=== PATIENT | female | born 2000 | race Caucasian/White ===

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

== ENCOUNTER → 2024-07-27 | Outpatient (CLI) | payer BC ==
--- NOTE | 2024-07-27 15:05 | USB ---
Reason for Exam: Clinical finding. Technique: Method: Targeted. Findings: The area of palpable concern of the left breast, the axilla of the left breast and the retroareolar of the left breast were scanned. There is a solid mass at the left 7:00 position 2 cm from the nipple correlating to the patient's clinical abnormality. The mass measures 9 x 6 mm and tissue diagnosis is recommended. No additional masses are seen within the imaged field. Retroareolar and axillary regions are unremarkable. Overall Assessment: Suspicious, BI-RAD 4 Management: Ultrasound Core Biopsy of the left breast. A clinical breast exam by your physician is recommended on an annual basis and results should be correlated with mammographic findings. This exam should not preclude additional follow-up of suspicious palpable abnormalities. Results were given to the patient verbally at the time of exam. [facility], , 07/27/2024 2:59 PM. Electronically signed and approved by: Yevgeniy Beltran M.D. [facility]
== END | disposition home or self-care (01) ==
LOC: RADUSWWP 14:34
PROVIDERS: ATTEND Obstetrics & Gynecology Obstetrics
DX: N63.24 Unspecified lump in the left breast, lower inner quadrant (principal)